=== PATIENT | male | born 1955 | race Caucasian/White ===

== ENCOUNTER 2020-10-10 07:48 | Day surgery (SDC) | payer MEDICARE, BC ==
[~2020-10-10 07:48] MED LIST: Midazolam 1 MG/ML 2 ML SDV ONE; Propofol 200 MG/20 ML SDV ONE; fentaNYL 100 MCG/2 ML SDV ONE
[2020-10-10] MEDS ORDERED: Sodium Chloride 0.9% 1,000 ML IV SCH (08:30)
[2020-10-10] MEDS ORDERED: Dicyclomine 10 MG Cap PO ONE (11:23)
--- NOTE | 2020-10-11 08:34 | OR ---
DATE OF PROCEDURE: 10/10/2020 SURGEON: Jarad Thompson MD PROCEDURE: Colonoscopy. FINDINGS: Normal colonoscopy. PREOPERATIVE DIAGNOSIS: Family history of colorectal cancer. POSTOPERATIVE DIAGNOSIS: Family history of colorectal cancer. RISKS: Risks, benefits, alternatives, and limitations including, but not limited to infection, bleeding, perforation, false positives, and false negatives were explained to the patient and he wished to proceed. PROCEDURE IN DETAIL: The patient was placed in left lateral decubitus position. Digital rectal exam was performed without abnormality. The scope was introduced and advanced atraumatically to the ileocecal valve. A photo was taken of this. Scope was brought back through the ascending, transverse, descending colon, and retroflexed. No evidence of old or new blood. No masses. No polyps. The patient did have 1 diverticula. Greater than 8 minutes was spent removing the scope. The prep was acceptable, approximately 90% of the luminal surface could be seen. No abnormalities on retroflex. Jarad Thompson MD /[id number]
== END 2020-10-10 13:51 | disposition home or self-care (01) ==
LOC: JP.SDS 07:48
PROVIDERS: ATTEND Surgery
DX: Z12.11 Encounter for screening for malignant neoplasm of colon (principal); K57.30 Diverticulosis of large intestine without perforation or abscess without bleeding; Z80.0 Family history of malignant neoplasm of digestive organs
CPT/HCPCS: J2250; J2704; J3010; J7030

== ENCOUNTER 2021-04-09 06:34 | Day surgery (SDC) | payer MEDICARE, BC ==
[~2021-04-09 06:34] MED LIST changes: +Bupivacaine 0.5% 30 ML SDV ONE; +Lactated Ringers 1,000 ML IV SCH; -Midazolam 1 MG/ML 2 ML SDV ONE; -Propofol 200 MG/20 ML SDV ONE; -fentaNYL 100 MCG/2 ML SDV ONE
[2021-04-09] MEDS ORDERED: Lactated Ringers 1,000 ML IV SCH (07:00)
[2021-04-09] MEDS ORDERED: Propofol 200 MG/20 ML SDV IV ONE ×2 (07:37)
[2021-04-09] MEDS ORDERED: fentaNYL 100 MCG/2 ML SDV ONE ×2 (07:37→09:24)
[2021-04-09] MEDS ORDERED: Midazolam 1 MG/ML 2 ML SDV ONE ×2 (07:37→09:24)
[2021-04-09] MEDS ORDERED: Propofol 200 MG/20 ML SDV ONE (07:37)
[2021-04-09] MEDS ORDERED: Bupivacaine 0.5% 30 ML SDV ONE (07:39)
[2021-04-09] MEDS ORDERED: Nozin Nasal Sanitizer NASBOTH ONE (08:00)
[2021-04-09] MEDS ORDERED: ceFAZolin 1 GM in Premix Bag 1 BAG IV ONE (08:00)
[2021-04-09] MEDS ORDERED: Lactated Ringers 1,000 ML ONE (10:43)
[2021-04-09] MEDS ORDERED: Acetaminophen/oxyCODONE 325-5 MG Tab PO PRN (12:28)
== END 2021-04-09 13:37 | disposition home or self-care (01) ==
LOC: JP.SDS 06:34
PROVIDERS: ATTEND Specialist
DX: M75.122 Complete rotator cuff tear or rupture of left shoulder, not specified as traumatic (principal); M19.012 Primary osteoarthritis, left shoulder
CPT/HCPCS: 29824; 29827; 36415; 80053; 85027; A9270; C1713; J0690; J2250; J2704; J3010; J3490; J7120

== ENCOUNTER 2024-07-08 22:02 | Emergency (ER) | payer MEDICARE, BC | END 2024-07-08 23:44 | disposition home or self-care (01) | LOC: JP.ED 22:02 | DX: R04.0 Epistaxis (principal); E78.00 Pure hypercholesterolemia, unspecified; Z79.899 Other long term (current) drug therapy | CPT/HCPCS: 99282; 99283 ==